=== PATIENT | female | born 1990 | race Caucasian/White ===

== ENCOUNTER 2020-09-27 18:48 | Emergency (ER) | payer MEDICARE ==
[~2020-09-27 18:48] MED LIST: ANTIVERT 25MG T25 MG PO; BENADRYL 50MG C50 MG PO; BENTYL 20MG TAB20 MG PO; BUSPIRONE HCL10 MG PO; CARAFATE1 GM/10 ML PO; CELEBREX 200MG200 MG PO; CELEXA40 MG PO; FLONASE 0.05% N16 GM; FLOXIN 0.3% OTIC5 ML AD; GABAPENTIN300 MG PO; IBUPROFEN600 MG PO; IBUPROFEN800 MG PO; KEFLEX500 MG PO; LEXAPRO10 MG PO; LODINE CAP 300300 MG PO; MEDROL4 MG PO; NORCO 5-325 TA1 EACH PO; OXCARBAZEPINE600 MG PO; PERCOCET 5-3251 EACH PO; PREDNISONE 50 M50 MG PO; PROTONIX40 MG PO; ROBAXIN500 MG PO; TENORMIN 50 MG50 MG PO; TESSALON PERLE100 MG PO; VENTOLIN HFA 66.7 GM INH; Voltaren Gel 1 % TOP; WELLBUTRIN SR150 M1 PO; ZITHROMAX250 MG PO; ZOFRAN ODT 4 MG4 MG PO
[2020-09-28] MEDS ORDERED: CYCLOBENZAPRINE10 MG PO (01:46)
[2020-09-28] MEDS ORDERED: CEFUROXIME250 MG PO (01:46)
== END 2020-09-28 02:10 | disposition home or self-care (01) ==
LOC: ER1 18:48
DX: S39.012A Strain of muscle, fascia and tendon of lower back, initial encounter (principal); G43.909 Migraine, unspecified, not intractable, without status migrainosus; R82.81 Pyuria; I25.10 Atherosclerotic heart disease of native coronary artery without angina pectoris; Z88.0 Allergy status to penicillin; W19.XXXA Unspecified fall, initial encounter
CPT/HCPCS: 72128; 72131; 81001; 84703; 87086; 96372; 99284; J1885

== ENCOUNTER 2020-10-15 18:08 | Emergency (ER) | payer MEDICARE ==
[~2020-10-15 18:08] MED LIST changes: +CEFUROXIME250 MG PO; +CYCLOBENZAPRINE10 MG PO
== END 2020-10-15 22:20 | disposition home or self-care (01) ==
LOC: ER1 18:08
DX: S39.012A Strain of muscle, fascia and tendon of lower back, initial encounter (principal); Z88.0 Allergy status to penicillin; X50.9XXA Other and unspecified overexertion or strenuous movements or postures, initial encounter
CPT/HCPCS: 72131; 81001; 84703; 96372; 99284; J2270; J2360

== ENCOUNTER 2020-12-29 17:49 | Emergency (ER) | payer MEDICARE, OTHER ==
[2020-12-29 19:34] LABS: RED BLOOD COUNT 4.35 M/UL (4.00-5.10); WHITE BLOOD COUNT 7.5 K/UL (4.5-11.0)
[2020-12-29 20:13] LABS: BUN/CREATININE RATIO 23 (0-10)
== END 2020-12-29 20:41 | disposition home or self-care (01) ==
LOC: ER1 17:49
PROVIDERS: Student in an Organized Health Care Education/Training Program
DX: M54.5 Low back pain (principal); G89.29 Other chronic pain; Z88.0 Allergy status to penicillin; Z79.899 Other long term (current) drug therapy
CPT/HCPCS: 72131; 80053; 81001; 82550; 82553; 84703; 85025; 96374; 96375; 99284; J2270; J2405

== ENCOUNTER 2021-03-18 17:57 | Emergency (ER) | payer MEDICARE | END 2021-03-18 20:13 | disposition left against medical advice (07) | LOC: ER1 17:57 | DX: Z53.21 Procedure and treatment not carried out due to patient leaving prior to being seen by health care provider (principal) ==

== ENCOUNTER 2021-09-24 09:00 | Emergency (ER) | payer MEDICARE ==
[2021-09-24] MEDS ORDERED: MEDROL DOSEPAK 24 MG PO (12:51)
[2021-09-24] MEDS ORDERED: Voltaren Gel 1% TOP (12:51)
== END 2021-09-24 12:50 | disposition home or self-care (01) ==
LOC: ER1 09:00
DX: M54.50 Low back pain, unspecified (principal); G89.29 Other chronic pain; Z88.1 Allergy status to other antibiotic agents
CPT/HCPCS: 72100; 99283

== ENCOUNTER 2022-04-06 18:07 | Emergency (ER) | payer MEDICARE ==
[~2022-04-06 18:07] MED LIST changes: +MEDROL DOSEPAK 24 MG PO; +Voltaren Gel 1% TOP
[2022-04-06 19:58] LABS: HEMOGLOBIN 13.9 gm/dl (12.3-15.3); RED BLOOD COUNT 4.72 M/UL (4.00-5.10); WHITE BLOOD COUNT 9.1 K/UL (4.5-11.0)
[2022-04-06 20:37] LABS: BUN/CREATININE RATIO 21 (0-10)
== END 2022-04-06 22:33 | disposition home or self-care (01) ==
LOC: ER1 18:07
PROVIDERS: Physician Assistant
DX: R10.13 Epigastric pain (principal); R10.816 Epigastric abdominal tenderness; Z88.0 Allergy status to penicillin
CPT/HCPCS: 71045; 80053; 81001; 82150; 82550; 82553; 83605; 83690; 84484; 84703; 85025; 85610; 87086; 96374; 96375; 99284; J2270; J2405; Q9967